=== PATIENT | female | born 1985 | race African-American/Black ===

== ENCOUNTER 2017-01-23 19:28 | Emergency (ER) | payer BC ==
[~2017-01-23] VITALS: Ht 154.9 cm; Wt 68.0 kg
[2017-01-23 19:36] VITALS: BP 113/79
[2017-01-23] MEDS ORDERED: ASPIRIN325 PO (19:43)
[2017-01-23] MEDS ORDERED: IBUPROFEN 200200 M1 PO (19:43)
[2017-01-23] MEDS ORDERED: NAPROSYN500 MG PO (19:45)
== END 2017-01-23 20:18 | disposition home or self-care (01) ==
LOC: ER 19:28
DX: S86.911A Strain of unspecified muscle(s) and tendon(s) at lower leg level, right leg, initial encounter (principal); F17.210 Nicotine dependence, cigarettes, uncomplicated; F10.99 Alcohol use, unspecified with unspecified alcohol-induced disorder; Z98.890 Other specified postprocedural states; X58.XXXA Exposure to other specified factors, initial encounter; Y93.89 Activity, other specified; Y92.89 Other specified places as the place of occurrence of the external cause; Y99.8 Other external cause status